=== PATIENT | male | born 1995 | race Hispanic/Latino ===

== ENCOUNTER 2020-09-12 22:18 | Emergency (ER) | payer OTHER ==
[~2020-09-12] VITALS: Ht 177.8 cm; Wt 85.3 kg
[2020-09-13 00:31] VITALS: BP 99/57
== END 2020-09-13 02:30 | disposition home or self-care (01) ==
LOC: M ED 22:18
DX: S40.861A Insect bite (nonvenomous) of right upper arm, initial encounter (principal); W57.XXXA Bitten or stung by nonvenomous insect and other nonvenomous arthropods, initial encounter; Y92.9 Unspecified place or not applicable; Y93.9 Activity, unspecified; Y99.9 Unspecified external cause status

== ENCOUNTER → 2024-02-23 | Outpatient (REF) | payer OTHER ==
[2024-02-23 09:36] LABS: SEMEN APPEARANCE OPAQUE (OPAQUE); SEMEN VISCOSITY VISCOUS (LIQUID); SEMEN VOLUME 2.5 ml (2.0-5.0); SEMEN pH 8.5 (7.0-8.0)
[2024-02-23 09:37] LABS: SPERM CONCENTRATION 61.8 M/ml (>=15.0); WBC CONCENTRATION <=1 M/ml (<=1 M/ml)
== END ==
LOC: M LAB REF 09:13
PROVIDERS: ATTEND Nurse Practitioner Family
DX: N46.9 Male infertility, unspecified (principal)

== ENCOUNTER → 2024-07-18 | Outpatient (REF) | payer OTHER | LOC: M LAB REF 12:05 | PROVIDERS: ATTEND Internal Medicine Gastroenterology | DX: B96.81 Helicobacter pylori [H. pylori] as the cause of diseases classified elsewhere (principal) ==